=== PATIENT | female | born 1995 | race Caucasian/White ===

== ENCOUNTER 2018-12-29 14:03 | Emergency (ER) | payer BC, OTHER ==
[~2018-12-29] VITALS: Ht 152.4 cm; Wt 72.5 kg
--- NOTE | 2018-12-29 14:16 | NUR ---
pt to ed with vbx3 weeks, hx ovarian cysts, no pain, some lbp. md at bedside
--- NOTE | 2018-12-29 14:34 | NUR ---
urine sent to lab
--- NOTE | 2018-12-29 14:35 | NUR ---
pt to us
[2018-12-29 14:51] LABS: MICROSCOPIC INDICATED
[2018-12-29 14:53] LABS: HCG UR SG 1.027 (1.003-1.030)
--- NOTE | 2018-12-29 15:13 | NUR ---
pt returned from us
[2018-12-29 15:17] LABS: CULTURE INDICATED? NO
[2018-12-29 15:36] LABS: BASOPHILS # (AUTO) 0.04 x10^3/uL (0-0.1); BASOPHILS % (AUTO) 1 % (0-1); EOSINOPHILS % (AUTO) 1 % (1-7); LYMPHOCYTES # (AUTO) 4.17 x10^3/uL (1-3.4); LYMPHOCYTES % (AUTO) 55 % (22-44); MD NO; MEAN CORPUSCULAR HGB CONC 33.8 g/dL (32.4-35.8); MEAN CORPUSCULAR VOLUME 82.8 fL (80-100); MEAN PLATELET VOLUME 7.6 fL (7.4-10.4); MONOCYTES # (AUTO) 0.95 x10^3/uL (0.2-0.8); MONOCYTES % (AUTO) 13 % (2-9); NEUTROPHILS # (AUTO) 2.33 x10^3/uL (1.8-6.8); NEUTROPHILS % (AUTO) 31 % (42-75); PLATELET COUNT 308 x10^3/uL (130-400); RED BLOOD COUNT 5.44 x10^6/uL (3.82-5.3); RED CELL DISTRIBUTION WIDTH 13.7 % (9.6-15.2)
[2018-12-29 15:41] LABS: ALBUMIN 4.1 g/dL (3.4-5.0); ANION GAP 6 mmol/L (5-15); CHLORIDE 111 mmol/L (98-107); CREATININE 0.74 mg/dL (0.55-1.02)
[2018-12-29 16:05] VITALS: BP 113/58
--- NOTE | 2018-12-29 16:05 | NUR ---
pt resting in [place], lab and rad results back, pt up for recheck
== END 2018-12-29 16:46 | disposition home or self-care (01) ==
LOC: ED 16:40
DX: N92.1 Excessive and frequent menstruation with irregular cycle (principal)
CPT/HCPCS: 36415; 76830; 80048; 81001; 81025; 82040; 85025; 99284